=== PATIENT | male | born 1950 | race Caucasian/White ===

== ENCOUNTER 2023-01-03 16:50 | Emergency (ER) | payer MEDICARE ==
[~2023-01-03] VITALS: Ht 177.8 cm; Wt 85.3 kg
[~2023-01-03 16:50] MED LIST: CEPH500 PO; HYDACE5325 PO
[2023-01-03 17:06] VITALS: BP 145/104
== END 2023-01-03 20:00 | disposition home or self-care (01) ==
LOC: ER 16:50
DX: S52.501A Unspecified fracture of the lower end of right radius, initial encounter for closed fracture (principal); W18.30XA Fall on same level, unspecified, initial encounter; Z79.891 Long term (current) use of opiate analgesic; I10 Essential (primary) hypertension; E11.9 Type 2 diabetes mellitus without complications; D64.9 Anemia, unspecified; E03.9 Hypothyroidism, unspecified
CPT/HCPCS: 29125; 73090; 73110; 99283-25

== ENCOUNTER 2023-02-07 21:58 | Emergency (ER) | payer MEDICARE ==
[~2023-02-07] VITALS: Ht 177.8 cm; Wt 86.2 kg
[2023-02-07 23:15] LABS: BASOPHILS ABSOLUTE AUTO 0.03 K/mm3 (0.00-0.23); BASOPHILS PERCENT AUTO 0 % (0-2); EOSINOPHILS ABSOLUTE AUTO 0.15 K/mm3 (0.00-0.68); EOSINOPHILS PERCENT AUTO 2 % (0-6); Hematocrit 30.1 % (37.0-53.0); Hemoglobin 9.8 g/dL (13.5-17.5); IMMATURE GRAN ABSOLUTE AUTO 0.01 K/mm3 (0.00-0.10); IMMATURE GRAN PERCENT AUTO 0 % (0-1); LYMPHOCYTES ABSOLUTE AUTO 1.38 K/mm3 (0.84-5.20); LYMPHOCYTES PERCENT AUTO 19 % (21-46); MONOCYTES ABSOLUTE AUTO 0.37 K/mm3 (0.16-1.47); MONOCYTES PERCENT AUTO 5 % (4-13); Mean Corpuscular HGB 32.1 pg (26.0-34.0); Mean Corpuscular HGB Conc 32.6 g/dL (31.5-36.5); Mean Corpuscular Volume 99 fL (80-100); Mean Platelet Volume 9.4 fL (9.1-12.4); NEUTROPHILS ABSOLUTE AUTO 5.21 K/mm3 (1.96-9.15); NEUTROPHILS PERCENT AUTO 73 % (41-73); Platelet Count 209 K/mm3 (150-400); RDW Coefficient Variation 11.9 % (11.7-14.2); RDW Standard Deviation 42.7 fL (35.1-46.3); Red Blood Cell Count 3.05 M/mm3 (4.30-5.90); White Blood Cell Count 7.15 K/mm3 (4.00-11.30)
[2023-02-07 23:21] LABS: Base Excess Venous -5.4 mmol/L; Bicarbonate Venous 20.1 mmol/L (24.0-30.0); PCO2 Venous 47.5 mmHg (38-42); pH Blood Venous 7.27 (7.34-7.37)
[2023-02-07] MEDS ORDERED: LEVOTHYROXINE (23:28)
[2023-02-07] MEDS ORDERED: GLIM2 (23:29)
[2023-02-07] MEDS ORDERED: LOSA25 (23:29)
[2023-02-07] MEDS ORDERED: METO25ER (23:29)
[2023-02-07] MEDS ORDERED: Vitamin B-12100 MCG (23:30)
[2023-02-07] MEDS ORDERED: TRAZ100 (23:31)
[2023-02-07] MEDS ORDERED: BUME2 (23:31)
[2023-02-07 23:34] LABS: Albumin, Blood 3.4 g/dL (3.4-5.0); Beta-hydroxybutyrate 2.2 mg/dL (0.2-2.8); Bilirubin, Total 0.4 mg/dL (0.1-1.0); Bun/Creatinine Ratio 16.3 (12.0-20.0); Calcium, Blood 8.7 mg/dL (8.5-10.1); Creatinine, Blood 4.17 mg/dL (0.60-1.20); Globulin, Blood 3.3 g/dL (2.2-4.0); Potassium, Blood 5.2 mmol/L (3.5-5.5); Total Protein, Blood 6.7 g/dL (6.4-8.2)
[2023-02-08] VITALS: BP 144/77
== END 2023-02-08 00:07 | disposition home or self-care (01) ==
LOC: ER 21:58
PROVIDERS: Student in an Organized Health Care Education/Training Program
DX: E11.65 Type 2 diabetes mellitus with hyperglycemia (principal); E87.20 Acidosis, unspecified; E11.22 Type 2 diabetes mellitus with diabetic chronic kidney disease; I12.0 Hypertensive chronic kidney disease with stage 5 chronic kidney disease or end stage renal disease; N18.6 End stage renal disease; E27.1 Primary adrenocortical insufficiency; E03.9 Hypothyroidism, unspecified; Z99.2 Dependence on renal dialysis; Z79.899 Other long term (current) drug therapy; Z79.84 Long term (current) use of oral hypoglycemic drugs
CPT/HCPCS: 80053; 82010; 82803; 82947; 85025; 99283

== ENCOUNTER 2023-03-02 20:16 | Emergency (ER) | payer MEDICARE ==
[~2023-03-02] VITALS: Ht 177.8 cm; Wt 86.2 kg
[~2023-03-02 20:16] MED LIST changes: +BUME2; +GLIM2; +LEVOTHYROXINE; +LOSA25; +METO25ER; +TRAZ100; +Vitamin B-12100 MCG
[2023-03-02 20:54] VITALS: BP 150/84
[2023-03-02 21:50] LABS: Albumin, Blood 3.6 g/dL (3.4-5.0); Bilirubin, Total 0.3 mg/dL (0.1-1.0); Bun/Creatinine Ratio 18.3 (12.0-20.0); Creatinine, Blood 4.05 mg/dL (0.60-1.20); Globulin, Blood 3.6 g/dL (2.2-4.0); Potassium, Blood 5.5 mmol/L (3.5-5.5); Total Protein, Blood 7.2 g/dL (6.4-8.2)
[2023-03-02 21:53] LABS: Source, Urine Clean Catch
[2023-03-02 21:55] LABS: Bilirubin, Urine Neg (Neg); Blood, Urine 2+ (Neg); Glucose Qualitative, Urine 3+ (Neg); Ketones, Urine Neg (Neg); Leukocyte Esterase, Urine Neg (Neg); Nitrite, Urine Neg (Neg); Protein, Urine 3+ (Neg); Urobilinogen, Urine NORM (Normal)
[2023-03-02 22:00] LABS: Appearance, Urine Clear (Clear); Color, Urine Yellow (P-Yellow)
[2023-03-02 22:03] LABS: Bacteria Not Seen /hpf; Red Blood Cells, Urine 0-2 /hpf (0-2); Squamous Epithelial Cells Rare /hpf (Few); White Blood Cells, Urine Not Seen /hpf (0-5)
== END 2023-03-03 02:17 | disposition home or self-care (01) ==
LOC: ER 20:16
PROVIDERS: Emergency Medicine
DX: E11.65 Type 2 diabetes mellitus with hyperglycemia (principal); Z79.4 Long term (current) use of insulin; Z79.890 Hormone replacement therapy; Z79.84 Long term (current) use of oral hypoglycemic drugs; Z79.899 Other long term (current) drug therapy
CPT/HCPCS: 80053; 81001; 82947; 99283

== ENCOUNTER 2023-03-08 17:52 | Emergency (ER) | payer MEDICARE ==
[~2023-03-08] VITALS: Ht 177.8 cm; Wt 85.3 kg
[2023-03-08 19:40] VITALS: BP 132/67
== END 2023-03-08 19:43 | disposition home or self-care (01) ==
LOC: ER 17:52
DX: E11.65 Type 2 diabetes mellitus with hyperglycemia (principal); I12.0 Hypertensive chronic kidney disease with stage 5 chronic kidney disease or end stage renal disease; E11.22 Type 2 diabetes mellitus with diabetic chronic kidney disease; N18.6 End stage renal disease; E03.9 Hypothyroidism, unspecified; Z79.890 Hormone replacement therapy; Z79.899 Other long term (current) drug therapy
CPT/HCPCS: 99283

== ENCOUNTER → 2023-03-22 | Outpatient (CLI) | payer MEDICARE | END | disposition home or self-care (01) | LOC: LAB SHORT 17:33 → LAB EV 17:33 | DX: E11.65 Type 2 diabetes mellitus with hyperglycemia (principal); R05.9 Cough, unspecified; R35.0 Frequency of micturition | CPT/HCPCS: 87086 ==

== ENCOUNTER 2023-04-26 18:02 | Inpatient (IN) | payer MEDICARE ==
[~2023-04-26] VITALS: Ht 177.8 cm; Wt 86.6 kg
[~2023-04-26 18:02] MED LIST changes: -GLIM2; +GLIM2 PO; -LEVOTHYROXINE; +LEVSOD150 PO; -LOSA25; +LOSA25 PO; -TRAZ100; +TRAZ100 PO
[2023-04-26] MEDS ORDERED: GABA300 PO (20:28)
[2023-04-26] MEDS ORDERED: HYDCOR20 PO (20:28)
[2023-04-26] MEDS ORDERED: Cyclobenzaprine5 MG PO (20:29)
[2023-04-26] MEDS ORDERED: Norco 10-325 T1 EACH PO (20:30)
[2023-04-26 21:40] LABS: Albumin, Blood 3.1 g/dL (3.4-5.0); Anion Gap 8 mmol/L (6-16); Blood Urea Nitrogen 118 mg/dL (8-24); Bun/Creatinine Ratio 25.8 (12.0-20.0); CO2, Blood 24 mmol/L (21-32); Calcium, Blood 8.7 mg/dL (8.5-10.1); Chloride, Blood 101 mmol/L (98-108); Creatinine, Blood 4.57 mg/dL (0.60-1.20); Glomerular Filtration Rate 13 (60-); Glucose, Blood 344 mg/dL (70-99); Phosphorus, Blood 3.6 mg/dL (2.5-4.9); Potassium, Blood 6.2 mmol/L (3.5-5.5); Sodium, Blood 133 mmol/L (136-145)
[2023-04-26 22:52] VITALS: BP 91/51
[2023-04-27 01:39] LABS: Albumin, Blood 2.9 g/dL (3.4-5.0); Anion Gap 6 mmol/L (6-16); Blood Urea Nitrogen 114 mg/dL (8-24); Bun/Creatinine Ratio 23.2 (12.0-20.0); CO2, Blood 28 mmol/L (21-32); Calcium, Blood 8.5 mg/dL (8.5-10.1); Chloride, Blood 103 mmol/L (98-108); Creatinine, Blood 4.91 mg/dL (0.60-1.20); Glomerular Filtration Rate 12 (60-); Glucose, Blood 296 mg/dL (70-99); Phosphorus, Blood 2.9 mg/dL (2.5-4.9); Potassium, Blood 5.5 mmol/L (3.5-5.5); Sodium, Blood 137 mmol/L (136-145)
[2023-04-27 03:06] VITALS: BP 144/59
[2023-04-27 04:09] LABS: BASOPHILS ABSOLUTE AUTO 0.04 K/mm3 (0.00-0.23); BASOPHILS PERCENT AUTO 0 % (0-2); EOSINOPHILS ABSOLUTE AUTO 0.01 K/mm3 (0.00-0.68); EOSINOPHILS PERCENT AUTO 0 % (0-6); Hematocrit 23.3 % (37.0-53.0); Hemoglobin 7.8 g/dL (13.5-17.5); IMMATURE GRAN ABSOLUTE AUTO 0.07 K/mm3 (0.00-0.10); IMMATURE GRAN PERCENT AUTO 0 % (0-1); LYMPHOCYTES ABSOLUTE AUTO 0.43 K/mm3 (0.84-5.20); LYMPHOCYTES PERCENT AUTO 3 % (21-46); MONOCYTES ABSOLUTE AUTO 0.42 K/mm3 (0.16-1.47); MONOCYTES PERCENT AUTO 3 % (4-13); Mean Corpuscular HGB 32.2 pg (26.0-34.0); Mean Corpuscular HGB Conc 33.5 g/dL (31.5-36.5); Mean Corpuscular Volume 96 fL (80-100); Mean Platelet Volume 9.4 fL (9.1-12.4); NEUTROPHILS ABSOLUTE AUTO 14.66 K/mm3 (1.96-9.15); NEUTROPHILS PERCENT AUTO 94 % (41-73); Platelet Count 204 K/mm3 (150-400); RDW Coefficient Variation 11.5 % (11.7-14.2); RDW Standard Deviation 40.5 fL (35.1-46.3); Red Blood Cell Count 2.42 M/mm3 (4.30-5.90); White Blood Cell Count 15.63 K/mm3 (4.00-11.30)
[2023-04-27 04:28] LABS: International Normalized Ratio 1.15
[2023-04-27 04:42] LABS: Albumin, Blood 2.9 g/dL (3.4-5.0); Albumin/Globulin Ratio 0.9 (0.8-1.8); Bilirubin, Total 0.4 mg/dL (0.1-1.0); Bun/Creatinine Ratio 22.2 (12.0-20.0); Calcium, Blood 8.6 mg/dL (8.5-10.1); Creatinine, Blood 5.18 mg/dL (0.60-1.20); Globulin, Blood 3.2 g/dL (2.2-4.0); Magnesium, Blood 2.1 mg/dL (1.6-2.4); Potassium, Blood 5.8 mmol/L (3.5-5.5); Thyroid Stimulating Hormone 2.36 uIU/mL (0.360-4.800); Total Protein, Blood 6.1 g/dL (6.4-8.2)
--- NOTE | 2023-04-27 06:25 | NUR ---
SHIFT SUMMARY PT IS HERE WITH A LEFT FEMUR FX AFTER FALLING INTO AN OPEN CRAWLSPACE HOLE LOCATED INSIDE THE HOME. PT IS A AMISH AND DOES NOT WANT ANY BLOOD PRODUCTS. PT HAS ESRD AND IS ON PERITONEAL DIALYSIS, PORT LOCATED ON THE PT'S ABDOMEN. HIS LAST DIALYSIS APPT WAS ON 04/22/23. PT'S POTASSIUM, BUN, AND CREATININE ARE ELEVATED. PT HAS BEEN NPO SINCE MIDNIGHT FOR ADD-ON PROCEDURE TODAY. PT HAS ALSO BEEN PLACED IN TRACTION PER MD ORDER. 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 PT IS ALSO ON TELEMETRY AND HAD AN ST DEPRESSION THIS SHIFT WELL BUNDLE FLIPS OCCURRING AROUND MIDNIGHT PER MESH CUTTER. EKG PERFORMED WITH PCU PAUL ANN AND ALL HEART MONITORING RESULTS REPORTED TO MD IGLESIAS. METOPROLOL HELD LAST NIGHT D/T SYSTOLIC BEING UNDER 100. PT HAS BEEN STRUGGLING TO KEEP HIS BLOOD GLUCOSE DOWN AND HAS AN APPT WITH AN [facility] ON SUNDAY. PT'S BROTHER GARCIA WILL CALL TODAY TO SEE ABOUT BEING ABLE TO MAKE THAT APPT. BED IS IN LOWEST POSITION, CALL LIGHT IS WITHIN REACH.
--- NOTE | 2023-04-27 07:19 | NUR ---
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 DR HAJI NOTIFIED, OK TO SWITCH CONSULT PER PT REQUEST.
[2023-04-27 07:37] VITALS: BP 128/66
[2023-04-27 08:17] LABS: Percent Saturation 7.1 % (20.0-50.0)
[2023-04-27 10:57] VITALS: BP 147/65
--- NOTE | 2023-04-27 10:58 | NUR ---
PT TO DAY SURGERY WITH 20G 8CM POWERGLIDE
[2023-04-27 14:44] VITALS: BP 137/79
--- NOTE | 2023-04-27 17:44 | NUR ---
PD RN TO PT ROOM AT APPROX 1730PM TO START UP SERVIN CYCLER AND BEGIN SETTING UP FOR CCPD TREATMENT. CYCLER PROGRAMMED FOR A TREATMENT OF 1.5% DEXTROSE, TOTAL OF 4000ML, TOTAL THERAPY TIME OF 8 HRS, 2 EXCHANGES OF 2000ML EACH, WITH NO LAST FILL. AVERAGE DWELL TIME IS 3:34. CHANGED PT EXIT SITE BANDAGE, EXIT SITE IN PERFECT CONDITION, NEW BANDAGE APPLIED, CLEAN DRY AND INTACT, TX STARTED PER PROTOCOL, PT CONNECTED AT 1750PM.
--- NOTE | 2023-04-27 18:26 | NUR ---
SHIFT SUMMARY S/P L HIP FX, A/OX4, VSS, TOLERATIN PO, PAIN MANAGED PER EMAR. SURGERY DELAYED TODAY R/T NEED FOR DIALYSIS, PLAN TO TAKE HIM TO SURGERY TOMORROW [place], DIALYSIS STARTED BY [facility] JUST AFTER 1700, CONTACT INFORMATION GIVEN SHOULD PATIENT OR STAFF HAVE QUESTIONS. PT REMAINS IN BUCKS TRACTION T/O THE SHIFT. NO ACUTE EVENTS THIS SHIFT, CALL LIGHT IN REACH.
[2023-04-27 20:26] VITALS: BP 139/103
[2023-04-28] VITALS (22 sets, daily range): BP systolic 106–158; BP diastolic 51–79
--- NOTE | 2023-04-28 00:29 | NUR ---
CALLED BY BEDSIDE RN AT APPROX 2330PM DUE TO PD CYCLER ALARMS. "LOW DRAIN VOLUME" READ ON DISPLAY. ATEMPTED TO CLEAR ALARMS VIA PHONE BY HAVING BEDSIDE RN CHECK FOR KINKS AND PATIENT/CATHETER POSITIONING. TRIED TO PRESS STOP AND GO AGAIN TO REINITIATE DRAIN 1 OF 2. WAS CALLED BACK WHEN IT AGAIN BEGAN TO ALARM SHORTLY AFTER. I CAME IN A AGIAN ATTEMPTED THIS SYMPLE TROUBLE SHOOTING IN HOPES OF COMPLETING THE FIRST DRAIN COMPLETELY. THIS DID NOT WORK. I RECORDED ALL INFORMATION ON THE DISPLAY SCREEN FROM THE FIRST FILL/DWELL/DRAIN AND THEN BYPASSED THE REMAINDER OF THIS 1ST EXCAHNGE. IT WENT INTO ITS 2ND FILL OF 2. I NOTIFIED BEDSIDE RN TO CALL ME BACK IF ALARMS PERSIST. IT IS LIKELY THIS LOW DRAIN VOLUME WILL OCCUR AGAIN ONCE THIS 2ND DWELL IS COMPLETED AND IT ATTEMPTS TO DRAIN AGAIN. DRAIN VOLUME: 1409ML, IDRAIN: 1ML, MIN DRAIN VOL: 1699ML, CURRENT UF: -574.
[2023-04-28 04:39] LABS: BASOPHILS ABSOLUTE AUTO 0.03 K/mm3 (0.00-0.23); BASOPHILS PERCENT AUTO 0 % (0-2); EOSINOPHILS ABSOLUTE AUTO 0.09 K/mm3 (0.00-0.68); EOSINOPHILS PERCENT AUTO 1 % (0-6); Hematocrit 21.4 % (37.0-53.0); Hemoglobin 7.1 g/dL (13.5-17.5); IMMATURE GRAN ABSOLUTE AUTO 0.02 K/mm3 (0.00-0.10); IMMATURE GRAN PERCENT AUTO 0 % (0-1); LYMPHOCYTES ABSOLUTE AUTO 0.94 K/mm3 (0.84-5.20); LYMPHOCYTES PERCENT AUTO 9 % (21-46); MONOCYTES ABSOLUTE AUTO 0.47 K/mm3 (0.16-1.47); MONOCYTES PERCENT AUTO 5 % (4-13); Mean Corpuscular HGB Conc 33.2 g/dL (31.5-36.5); Mean Corpuscular Volume 96 fL (80-100); Mean Platelet Volume 9.5 fL (9.1-12.4); NEUTROPHILS PERCENT AUTO 85 % (41-73); Platelet Count 168 K/mm3 (150-400); RDW Coefficient Variation 11.5 % (11.7-14.2); RDW Standard Deviation 40.6 fL (35.1-46.3); Red Blood Cell Count 2.22 M/mm3 (4.30-5.90); White Blood Cell Count 9.95 K/mm3 (4.00-11.30)
[2023-04-28 05:06] LABS: Magnesium, Blood 2.3 mg/dL (1.6-2.4)
[2023-04-28 05:10] LABS: Albumin, Blood 2.8 g/dL (3.4-5.0); Albumin/Globulin Ratio 0.9 (0.8-1.8); Bilirubin, Total 0.4 mg/dL (0.1-1.0); Calcium, Blood 8.6 mg/dL (8.5-10.1); Creatinine, Blood 5.49 mg/dL (0.60-1.20); Globulin, Blood 3.1 g/dL (2.2-4.0); Potassium, Blood 4.7 mmol/L (3.5-5.5); Total Protein, Blood 5.9 g/dL (6.4-8.2)
--- NOTE | 2023-04-28 06:40 | NUR ---
SHIFT SUMMARY PT IS HERE AWAITING SURGICAL INTERVENTION OF A LEFT FEMUR FX, WITH THE LEG BEING INTERNALLY ROTATED. PT HAS BEEN NPO SINCE MIDNIGHT. PT IS ALSO IN BUCKS TRACTION AT THIS TIME. PT WAS ON PERITONEAL DIALYSIS THIS SHIFT, BUT LAB RESULTS CAME BACK AND THE PT'S BUN AND CREATININE ARE SLIGHTLY WORSE THAN THE DAY BEFORE. PT'S HGB IS ALSO DOWN TO 7.1 PER AM LABS. PT'S HR HAS BEEN BETTER THIS SHIFT, RUNNING SINUS RHYTHM WITH A RATE IN THE 80'S. PT'S PAIN MEDICATED PER EMAR. BED IS IN LOWEST POSITION, CALL LIGHT IS WITHIN REACH.
--- NOTE | 2023-04-28 09:10 | NUR ---
0715 TO [facility] 212 FOR PD DISCONTINUANCE. PT IS LYING IN BED IN NO APPARENT DISTRESS. S/O AT BEDSIDE. NPO FOR ORTHO SURGERY. PT HAS IRON INFUSION RUNNING. PD DC/D PER PROTOCOL UNDER ASEPTIC TECHNIQUE. UNABLE TO ACCESS INTERVENTIONS ON [employer]. DRAIN VOLUME 1669ML; I DRAIN 1ML; AV DWELL 2.26 UF -823. PT IS REQUESTED TO RUN HIS OWN MANUAL PD ? WILL CONSULT WITH DR HERNANDEZ THIS AFTERNOON FOR FURTHER ORDERS. PT CATH SITE IS CLEAN, DRY AND INTACT. NO REDNESS OR DRNG NOTED. LEFT IN STABLE CONDITION. SACHIN
--- NOTE | 2023-04-28 09:35 | NUR ---
PT TAKEN TO OR AT APPROXIMATELY 0935.
--- NOTE | 2023-04-28 15:12 | NUR ---
PT ARRIVED FROM PACU TO THE ROOM AT 1405. PT COMPLAINS OF PAIN WITH MOVEMENT. HE IS SOMEWHAT CONFUSED ABOUT PLACE AND SITUATION. FAMILY PRESENT AT BEDSIDE. PT EDUCATED THAT HE WILL NEED TO WAIT FOR ADDITIONAL PAIN MEDICATION GIVEN HIS SENSITIVITY TO PAIN MEDICATION GIVEN IN PACU, PT AND FAMILY REPORTED UNDERSTANDING.
--- NOTE | 2023-04-28 17:22 | NUR ---
DR. HAJI NOTIFIED THAT PATIENT IS HAVING PERIODS OF APNEA WHEN SLEEPING. WHILE ON O2 PT'S OXYGEN SATURATIONS HAS BEEN NOTED TO DROP TO THE 70'S, PT RECOVERS IMMEDIATELY WHEN WOKEN BY STAFF. AVOIDING NARCOTIC PAIN MEDICATION AT THIS TIME.
--- NOTE | 2023-04-28 17:45 | NUR ---
SHIFT SUMMARY PT IS POD#0 FROM L HIP NAILING WITH DR. ROONEY. PT HAS BEEN PAINFUL POST OP; PAIN MANAGED WITH TYLENOL AND GABAPENTIN. PT IS SENSITIVE TO NARCOTICS. PT IS TOLERATING PO. FAMILY HAS BEEN AT THE BEDSIDE FOR SUPPORT. PT WAS CONFUSED POST-OP, HE IS NOW A&O X3-4; BED ALARM IN PLACE FOR SAFETY. CALL LIGHT WITHIN REACH.
--- NOTE | 2023-04-28 18:39 | NUR ---
1730 -TO ROOM 212 FOR [place] PD TX, SERVICES OF DR HERNANDEZ. PT IS 72 YO MALE WITH R FEMUR FX POST OP ORIF. PT IS AWAKE, ALERT AND ORIENTED. PLEASANT AND COOPERATIVE. FAMILY AT BEDSIDE. PD INITIATED UNDER ASEPTIC TECHNIQUE. PT TOLERATED WELL. ALL QUESTION ANSWERED. LEFT IN STABLE CONDITION. CATH SITE IS [facility]. SACHIN
[2023-04-29 02:50] VITALS: BP 141/65
[2023-04-29 05:18] LABS: Hemoglobin 6.4 g/dL (13.5-17.5)
[2023-04-29 05:41] LABS: Albumin, Blood 2.6 g/dL (3.4-5.0); Anion Gap 9 mmol/L (6-16); Blood Urea Nitrogen 119 mg/dL (8-24); Bun/Creatinine Ratio 22.6 (12.0-20.0); CO2, Blood 27 mmol/L (21-32); Calcium, Blood 8.4 mg/dL (8.5-10.1); Chloride, Blood 101 mmol/L (98-108); Creatinine, Blood 5.27 mg/dL (0.60-1.20); Glomerular Filtration Rate 11 (60-); Glucose, Blood 318 mg/dL (70-99); Magnesium, Blood 2.3 mg/dL (1.6-2.4); Phosphorus, Blood 6.8 mg/dL (2.5-4.9); Potassium, Blood 4.8 mmol/L (3.5-5.5); Sodium, Blood 137 mmol/L (136-145)
[2023-04-29 07:14] VITALS: BP 151/61
--- NOTE | 2023-04-29 09:14 | NUR ---
TO ROOM 212 FOR PD D/C ORDERS OF DR ALEX HERNANDEZ. PT EATING BREAKFAST, ALERT AND ORIENTED. PAIN LEVEL OF 4 TO R SURGICAL SITE. PRIMARY RN AT BEDSIDE. TX DISCONTINUED ASEPTICALLY. PT TOLERATED WELL. CATHETER SITE IS WNL. AV DWELL TIME 1:51, CURRENT UF -40ML, I DRAIN 185ML, DWELL VOLUME 2347. PT LEFT IN STABLE CONDITION. PLAN FOR PM TX TONIGHT. PLAN FOR PT DC TOMORROW 04/30/2023. SACHIN
--- NOTE | 2023-04-29 09:57 | NUR ---
SUMMARY PT NEEDS STRONG ENC TO REPOSITION.TOLERATED DILAUDID FOR PAIN.DIALYSIS RAN DURING NIGHT.
--- NOTE | 2023-04-29 11:28 | NUR ---
DR. HAJI ROUNDED. DISCUSSED PAIN MANAGEMENT WITH DR. HAJI, PT VERY PAINFUL WHEN WORKING WITH THERAPY. PT ALSO REPORTED DIZZINESS WHEN OOB, H&H LOW, VSS. PER DR. HAJI CONTINUE WITH PAIN MEDICATION ORDERED.
[2023-04-29 15:05] VITALS: BP 133/62
--- NOTE | 2023-04-29 19:37 | NUR ---
to room 212 for evening pd tx. pt dozing. awakens appropriately. vss. oriented. pd initiated per Dr Rosales orders. pt tolerated well. report to night JOS. vicente
--- NOTE | 2023-04-29 19:57 | NUR ---
SHIFT SUMMARY PT IS POD#1 FROM L HIP REPAIR WITH DR. ROONEY. PT REPORTS PAIN IS WELL MANAGED WITH PO PAIN MEDICATION. PT DOES GRIMACE AND HAVE DIFFICULTY REPOSITIONING/GETTING OOB. DISCUSSED PAIN MANAGEMENT WITH DR. HAJI, NO CHANGES AT THIS TIME SINCE PT REPORTS PAIN IS TOLERABLE. PT WORKED WITH PT X1 TODAY. HE BECAME DIZZY WHEN STANDING AND WAS ASSISTED BACK TO BED. PT HAS HAD ADEQUATE INTAKE AND OUTPUT. FAMILY HAS BEEN AT THE BEDSIDE FOR SUPPORT. REPORT GIVEN TO JORGE ARGUELLO.
[2023-04-29 20:26] VITALS: BP 131/55
[2023-04-30 04:53] VITALS: BP 127/58
[2023-04-30 06:22] LABS: Hemoglobin 6.2 g/dL (13.5-17.5)
[2023-04-30 06:44] LABS: Albumin, Blood 2.4 g/dL (3.4-5.0); Anion Gap 7 mmol/L (6-16); Blood Urea Nitrogen 114 mg/dL (8-24); CO2, Blood 29 mmol/L (21-32); Calcium, Blood 8.3 mg/dL (8.5-10.1); Chloride, Blood 102 mmol/L (98-108); Creatinine, Blood 5.19 mg/dL (0.60-1.20); Glomerular Filtration Rate 11 (60-); Glucose, Blood 257 mg/dL (70-99); Magnesium, Blood 2.2 mg/dL (1.6-2.4); Phosphorus, Blood 5.3 mg/dL (2.5-4.9); Potassium, Blood 4.4 mmol/L (3.5-5.5); Sodium, Blood 138 mmol/L (136-145)
[2023-04-30 07:25] VITALS: BP 125/59
--- NOTE | 2023-04-30 08:00 | NUR ---
DIALYSIS NOTE CCPD TX COMPLETED PRESCRIBED. PT TOLEARATED TX WELL AND DENIES ANY ALARMS DURING NIGHT. INITIAL DRAIN 196, TUF (-192), AVG DWELL TIME 1:07. PT DISCONNECTED FROM MACHINE USING ASEPTIC TECHNIQUE, TRANSFER SET CLAMPED, CLOSED, CAPPED AND SECURE PER P&P. REPORT GIVEN TO ANABEL ACUNA RN
--- NOTE | 2023-04-30 08:01 | NUR ---
POD 2 S/P L HIP NAILING. PT VSS T/O NIGHT. 2LO2 NC IN [address] WHEN SLEEPING R/T APPEARS TO HAVE APNEIC EPISODES WHEN SLEEPING. DRESSINGS CDI. LEFT HIP REMAINS SWOLLEN, L KNEE DOES APPEAR MORE SWOLLEN THIS AM. PAIN MGD PER EMAR W/REP RELIEF. CAP REFILL WNL, PT DENIES CHANGES IN SENSATION. PERITONEAL DYALISIS CONT T/O NIGHT, PT TEODORO WELL. PT VOIDED SMALL AMT URINE. PT REPOSITIONED IN BED W/MOD ASSIST. PT REP HE IS MOVING HIS LEG A LITTLE BETTER THIS AM. PLAN TO MOBILIZE W/PT. BEDSIDE REP GIVEN TO JOS LITTLE.
[2023-04-30 14:40] VITALS: BP 119/96
--- NOTE | 2023-04-30 16:35 | NUR ---
SHIFT SUMMARY POD 2 NAILING. PT UP IN CHAIR FOR MOST OF SHIFT. PAIN WELL CONTROLLED PER EMAR. 1 ASSIST WITH FWW FOR TRANSFERS. DRESSING REMAINS CDI. TOLERATING DIET WELL. PLAN WILL BE TO CONTINUE WITH AMBULATION.
--- NOTE | 2023-04-30 17:59 | NUR ---
DIALYSIS NOTE CCPD TX INITIATED PER MD ORDER, DRSG CHANGE COMPLETED AND PT TOLERATED WELL. HANDOFF REPORT GIVEN TO ANABEL ACUNA RN
[2023-04-30 19:56] VITALS: BP 132/54
[2023-05-01 06:02] VITALS: BP 115/54
[2023-05-01 06:34] LABS: Hematocrit 18.6 % (37.0-53.0); Hemoglobin 6.3 g/dL (13.5-17.5)
[2023-05-01 07:14] LABS: Albumin, Blood 2.4 g/dL (3.4-5.0); Anion Gap 7 mmol/L (6-16); Blood Urea Nitrogen 110 mg/dL (8-24); Bun/Creatinine Ratio 21.8 (12.0-20.0); CO2, Blood 28 mmol/L (21-32); Calcium, Blood 8.3 mg/dL (8.5-10.1); Chloride, Blood 101 mmol/L (98-108); Creatinine, Blood 5.04 mg/dL (0.60-1.20); Glomerular Filtration Rate 11 (60-); Glucose, Blood 288 mg/dL (70-99); Magnesium, Blood 2.3 mg/dL (1.6-2.4); Phosphorus, Blood 4.4 mg/dL (2.5-4.9); Potassium, Blood 4.1 mmol/L (3.5-5.5); Sodium, Blood 136 mmol/L (136-145)
[2023-05-01 07:25] VITALS: BP 133/98
[2023-05-01 07:26] VITALS: BP 124/64
--- NOTE | 2023-05-01 07:38 | NUR ---
POD 3 S/P L HIP REPAIR. PT VSS T/O NIGHT. PT USED CPAP W/2LO2 BLEED IN WHILE SLEEPING. NO CHANGES TO LEFT HIP SWELLING, L KNEE SOMEWHAT MORE SWOLLEN, PT REP LESS PAINFUL THIS AM, IS MOVING FOOT MORE THIS AM. PAIN MGD PER EMAR W/REP RELIEF. PD CONT T/O NIGHT, PT TEODORO WELL. PLAN TO MOBILIZE W/PT AND AWAIT DC PLANNING.
--- NOTE | 2023-05-01 10:04 | NUR ---
DIALYSIS NOTE CCPD TX COMPLETED PRESCRIBED. PT TOLEARATED TX WELL AND DENIES ANY ALARMS DURING NIGHT. INITIAL DRAIN 641, TUF (-177), AVG DWELL TIME 3:26. PT DISCONNECTED FROM MACHINE USING ASEPTIC TECHNIQUE, TRANSFER SET CLAMPED, CLOSED, CAPPED AND SECURE PER P&P. REPORT GIVEN TO ANABEL ACUNA RN
[2023-05-01 14:39] VITALS: BP 141/61
--- NOTE | 2023-05-01 17:05 | NUR ---
SHIFT SUMMARY POD 2 R BESS HIP PAIN IMPROVING DURING DAY, WORSE IN THE MORNING WHEN HE HAS NOT BEEN MOVING MUCH. AMBULATING WELL IN HALLS WITH THERAPY. AMBULATING TO THE BATHROOM REGULARILY. PAIN CONTROLLED PER EMAR. DRESSING REMAINS CDI. PLAN IS FOR DIALYSIS TONIGHT AND CONTINUING TO WORK WITH THERAPY.
--- NOTE | 2023-05-01 17:57 | NUR ---
DIALYSIS NOTE CCPD TX INITIATED PER MD ORDER, DRSG CHANGE COMPLETED AND PT TOLERATED WELL. HANDOFF REPORT GIVEN TO ANABEL ACUNA RN
[2023-05-01 19:20] VITALS: BP 140/84
--- NOTE | 2023-05-01 21:09 | NUR ---
CBG: CBG 360. PER SS ORDERS CALL MD FOR >350. CALL PLACED TO HOSPITALIST BOY ZIMMER TREND AND INSULIN ORDERS REV; NO NEW ORDERS AT THIS TIME.
[2023-05-02 05:28] LABS: Hematocrit 18.6 % (37.0-53.0); Hemoglobin 6.1 g/dL (13.5-17.5)
[2023-05-02 05:48] VITALS: BP 121/57
[2023-05-02 06:09] LABS: Albumin, Blood 2.4 g/dL (3.4-5.0); Anion Gap 8 mmol/L (6-16); Blood Urea Nitrogen 102 mg/dL (8-24); Bun/Creatinine Ratio 21.6 (12.0-20.0); CO2, Blood 28 mmol/L (21-32); Calcium, Blood 8.3 mg/dL (8.5-10.1); Chloride, Blood 101 mmol/L (98-108); Creatinine, Blood 4.73 mg/dL (0.60-1.20); Glomerular Filtration Rate 12 (60-); Glucose, Blood 272 mg/dL (70-99); Magnesium, Blood 2.2 mg/dL (1.6-2.4); Phosphorus, Blood 3.8 mg/dL (2.5-4.9); Potassium, Blood 3.8 mmol/L (3.5-5.5); Sodium, Blood 137 mmol/L (136-145)
[2023-05-02 07:02] VITALS: BP 179/72
--- NOTE | 2023-05-02 07:44 | NUR ---
POD 4 S/P L HIP REPAIR. PT VSS T/O NIGHT. CPAP W/2LO2 BLEED IN IN PALCE WHEN SLEEPING, PT TEODORO WELL. DRESSINGS CDI. SWELLING TO LEFT HIP AND KNEE IMPROVED AND SOFTER TO PALP. PULSES AND CAP REFILL WNL, PT DENIED CHANGES IN SENSATION. PAIN MGD PER EMAR W/REP RELIEF. PT REPOSITIONING SELF IN BED BETTER W/LESS ASSISTANCE. PD CONT T/O NIGHT, PT TEODORO WELL. CBG ELEVATED, DAY SHIFT RN UPDATED W/PLAN TO DISCUSS W/MD TODAY. PLAN TO MOBILIZE W/PT AND AWAIT DC PLANNING.
--- NOTE | 2023-05-02 07:45 | NUR ---
DIALYSIS NOTE CCPD TX COMPLETED PRESCRIBED. PT TOLEARATED TX WELL AND DENIES ANY ALARMS DURING NIGHT. INITIAL DRAIN 973, TUF 56, AVG DWELL TIME 3:54. PT DISCONNECTED FROM MACHINE USING ASEPTIC TECHNIQUE, TRANSFER SET CLAMPED, CLOSED, CAPPED AND SECURE PER P&P. REPORT GIVEN TO PRIMARY RN
--- NOTE | 2023-05-02 07:49 | NUR ---
FISTULA: PT REP HE HAS A FISTULA IN LEFT ARM. PT ASKED ABOUT POSSIBILITY OF STARTING HD FOR POSSIBLE DC TO SNF INSTEAD OF HH.
[2023-05-02] MEDS ORDERED: [UNRECOGNIZED DRUG - OTHER] SC (13:15)
[2023-05-02] MEDS ORDERED: HYDMOR2 PO (13:17)
[2023-05-02 13:48] VITALS: BP 111/67
--- NOTE | 2023-05-02 14:12 | NUR ---
DRESSINGS REMOVED. INCISION SITES CLEANSED WITH H2O2. AQUACEL DRESSING PLACED.
--- NOTE | 2023-05-02 16:39 | NUR ---
DISCHARGE PT PROVIDED WITH WRITTEN AND VERBAL DISCHARGE INSTRUCTIONS; HE AND HIS FAMILY REPORTED UNDERSTANDING. PT EDUCATED TO FOLLOW-UP WITH PCP WITHIN 1 WEEK REGARDING THE NEED FOR A SLEEP STUDY AND H&H. PT EDUCATED ABOUT SIGNS AND SYMPTOMS OF LOW BLOOD PRESSURE. VSS AT TIME OF DISCHARGE. PT SENT HOME WITH HIS WALKER AND A GAIT BELT FOR SAFETY. EDUCATION ABOUT HEPARIN ADMINISTRATION WAS PROVIDED. PT ASSISTED OUT IN W/C AT 1532.
== END 2023-05-02 15:41 | disposition home or self-care (01) | DRG 480 ==
LOC: ER 18:02 → MEDS 18:03 → SURS 18:03
PROVIDERS: Internal Medicine; Internal Medicine Nephrology; Orthopaedic Surgery; ADMIT Student in an Organized Health Care Education/Training Program
PROC: 3E1M39Z Irrigation of Peritoneal Cavity using Dialysate, Percutaneous Approach (ICD-10-PCS; 2023-04-27)
PROC: 0QH734Z Insertion of Internal Fixation Device into Left Upper Femur, Percutaneous Approach (ICD-10-PCS; principal; 2023-04-28 10:45)
DX: S72.22XA Displaced subtrochanteric fracture of left femur, initial encounter for closed fracture (principal); N18.6 End stage renal disease; I12.0 Hypertensive chronic kidney disease with stage 5 chronic kidney disease or end stage renal disease; E27.1 Primary adrenocortical insufficiency; E87.1 Hypo-osmolality and hyponatremia; E11.22 Type 2 diabetes mellitus with diabetic chronic kidney disease; I25.10 Atherosclerotic heart disease of native coronary artery without angina pectoris; E87.5 Hyperkalemia; E11.65 Type 2 diabetes mellitus with hyperglycemia; E88.09 Other disorders of plasma-protein metabolism, not elsewhere classified; E03.9 Hypothyroidism, unspecified; W17.89XA Other fall from one level to another, initial encounter; D50.9 Iron deficiency anemia, unspecified; D63.1 Anemia in chronic kidney disease; E87.6 Hypokalemia; E86.9 Volume depletion, unspecified; Z53.1 Procedure and treatment not carried out because of patient's decision for reasons of belief and group pressure; Y92.009 Unspecified place in unspecified non-institutional (private) residence as the place of occurrence of the external cause; Z79.890 Hormone replacement therapy; Z99.2 Dependence on renal dialysis; Z95.1 Presence of aortocoronary bypass graft
CPT/HCPCS: 36415; 73552; 80053; 80069; 82728; 82947; 83540; 83550; 83735; 84100; 84443; 85014; 85018; 85025; 85610; 93005; 93010; 94660; 94762; 96365; 96374; 96375; 96376; 97110; 97116; 97162; 97166; 97530; 97535; 99285-25; A9270; C1713; C1751; C1769; G0378; J0171; J0612; J0690; J0735; J0881; J1100; J1170; J1644; J1720; J1750; J1815; J1885; J2371; J2405; J2704; J2795; J3010; J7030; J7050; J7060

== ENCOUNTER → 2023-10-09 | Outpatient (CLI) | payer MEDICARE ==
[~2023-10-09] MED LIST changes: +Cyclobenzaprine5 MG PO; +GABA300 PO; +HUMULIN 70100 UNIT/3 SQ; +HYDCOR20 PO; +HYDMOR2 PO; +INSULIN GL100 UNIT/2 SQ; +Norco 10-325 T1 EACH PO; +[UNRECOGNIZED DRUG - OTHER] SC
[2023-10-09 13:27] LABS: BASOPHILS ABSOLUTE AUTO 0.06 K/mm3 (0.00-0.23); BASOPHILS PERCENT AUTO 1 % (0-2); EOSINOPHILS ABSOLUTE AUTO 0.35 K/mm3 (0.00-0.68); EOSINOPHILS PERCENT AUTO 5 % (0-6); Hematocrit 30.7 % (37.0-53.0); Hemoglobin 10.1 g/dL (13.5-17.5); IMMATURE GRAN ABSOLUTE AUTO 0.01 K/mm3 (0.00-0.10); IMMATURE GRAN PERCENT AUTO 0 % (0-1); LYMPHOCYTES PERCENT AUTO 16 % (21-46); MONOCYTES ABSOLUTE AUTO 0.43 K/mm3 (0.16-1.47); MONOCYTES PERCENT AUTO 6 % (4-13); Mean Corpuscular HGB 32.9 pg (26.0-34.0); Mean Corpuscular HGB Conc 32.9 g/dL (31.5-36.5); Mean Corpuscular Volume 100 fL (80-100); Mean Platelet Volume 8.5 fL (9.1-12.4); NEUTROPHILS ABSOLUTE AUTO 5.51 K/mm3 (1.96-9.15); NEUTROPHILS PERCENT AUTO 73 % (41-73); Platelet Count 207 K/mm3 (150-400); RDW Coefficient Variation 13.1 % (11.7-14.2); RDW Standard Deviation 47.8 fL (35.1-46.3); Red Blood Cell Count 3.07 M/mm3 (4.30-5.90); White Blood Cell Count 7.56 K/mm3 (4.00-11.30)
[2023-10-09 13:38] LABS: Albumin, Blood 3.2 g/dL (3.4-5.0); Albumin/Globulin Ratio 0.8 (0.8-1.8); Bilirubin, Total 0.3 mg/dL (0.1-1.0); Bun/Creatinine Ratio 13.8 (12.0-20.0); Calcium, Blood 6.8 mg/dL (8.5-10.1); Creatinine, Blood 4.29 mg/dL (0.60-1.20); Globulin, Blood 3.8 g/dL (2.2-4.0); Potassium, Blood 4.8 mmol/L (3.5-5.5)
== END | disposition home or self-care (01) ==
LOC: LAB SHORT 13:23 → LAB 13:23
PROVIDERS: Chiropractor
DX: R10.9 Unspecified abdominal pain (principal)
CPT/HCPCS: 80053; 83690; 85025

== ENCOUNTER → 2024-05-15 | Outpatient (CLI) | payer MEDICARE | END | disposition home or self-care (01) | LOC: LAB SHORT 10:54 → LAB 10:54 | DX: N18.6 End stage renal disease (principal); Z99.2 Dependence on renal dialysis | CPT/HCPCS: 82310 ==

== ENCOUNTER → 2024-05-18 | Outpatient (CLI) | payer MEDICARE ==
[2024-05-19 17:16] LABS: Creatinine Urine 66.1 mg/dL (27.00-270.00); Protein, Urine Quantitative 107.2 mg/dL (0.0-11.9)
== END ==
LOC: LAB 06:00 → LAB SHORT 06:00 → LAB FUT 05-16 13:45
PROVIDERS: Internal Medicine Nephrology
DX: N18.6 End stage renal disease (principal); D63.1 Anemia in chronic kidney disease; R76.9 Abnormal immunological finding in serum, unspecified; R94.5 Abnormal results of liver function studies; R94.6 Abnormal results of thyroid function studies; D50.9 Iron deficiency anemia, unspecified; D51.8 Other vitamin B12 deficiency anemias
CPT/HCPCS: 81050; 82043; 82570; 84156

== ENCOUNTER → 2024-05-26 | Outpatient (CLI) | payer MEDICARE ==
[2024-05-26 19:00] LABS: Calcium, Urine <5.0 mg/dL (< 17.5); Calcium, Urine Calculation Unable to Calculate mg/24hrs (42.0-353.0)
== END | disposition home or self-care (01) ==
LOC: LAB SHORT 10:00 → LAB 10:00
PROVIDERS: Family Medicine
DX: E83.52 Hypercalcemia (principal)
CPT/HCPCS: 81050; 82340

== ENCOUNTER → 2024-08-05 | Outpatient (CLI) | payer MEDICARE ==
[2024-08-05 16:51] LABS: Automated BF WBC Count 0.002 K/mm3 (0-999)
[2024-08-05 16:57] LABS: Body Fluid WBC Count 2 /mm3 (0-999)
[2024-08-05 17:25] LABS: Appearance, Body Fluid Clear (Clear); Color, Body Fluid No color (None-Yellow); RBC Count, Body Fluid 2 /mm3 (0-0)
== END ==
LOC: LAB SHORT 16:38 → LAB 16:38
PROVIDERS: Hospitalist
DX: N18.6 End stage renal disease (principal)
CPT/HCPCS: 87070; 89051

== ENCOUNTER 2024-11-12 06:29 | Day surgery (SDC) | payer OTHER ==
[2024-11-12] VITALS (7 sets, daily range): BP systolic 111–144; BP diastolic 52–81
[~2024-11-12] VITALS: Ht 177.8 cm; Wt 93.0 kg
[~2024-11-12 06:29] MED LIST changes: -BUME2; +BUME2 PO; +Crestor40 MG PO; -METO25ER; +METO25ER PO; +TAMS.4ER PO
[2024-11-12] MEDS ORDERED: Verapamil HCL 2.5 MG/ML 2ML Injection ONE (07:30)
[2024-11-12] MEDS ORDERED: Heparin Sodium 1000 Units/ML 10ML MDV ONE (07:30)
[2024-11-12] MEDS ORDERED: NS 250 ML IV ONE (07:30)
[2024-11-12] MEDS ORDERED: NS 1,000 ML IV ONE ×2 (07:30→08:09)
[2024-11-12] MEDS ORDERED: Nitroglycerin 2 MG/20 ML BTL ONE (07:31)
[2024-11-12] MEDS ORDERED: Midazolam HCl 1MG / ML 2ML Vial ONE (08:09)
[2024-11-12] MEDS ORDERED: FentaNYL Citrate 50 MCG/ML 2 ML Injection ONE (08:09)
--- NOTE | 2024-11-12 09:45 | NUR ---
PATIENT ARRIVED BACK TO RECOVERY ROOM WITH HOB FLAT. RIGHT GROIN SITE C/D/I SOFT/NONTENDER, NO EVIDENCE OF BLEEDING. VSS ON RA. PATIENT DENYING ANY PAIN. LE PERFUSION PRESENT.
--- NOTE | 2024-11-12 10:01 | NUR ---
HOB FLAT. RIGHT GROIN SITE C/D/I SOFT/NONTENDER, NO EVIDENCE OF BLEEDING, GOOOD PERFUSION PRESENT. VSS ON RA. PATIENT TOLERATING PO INTAKE WELL.
--- NOTE | 2024-11-12 12:00 | NUR ---
HOB ELEVATED 30 DEGREES. RIGHT GROIN SITE C/D/I SOFT/NONTENDER, NO EVIDENCE OF BLEEDING. DISTAL PERFUSION PRESENT. VSS ON RA. PATIENT TOLERATING PO INTAKE WELL.
--- NOTE | 2024-11-12 12:40 | NUR ---
PT AMB TO BATHROOM /C SBA. TOLERATED WELL. NEG BLEEDING OR SWELLING.
--- NOTE | 2024-11-12 12:55 | NUR ---
PT VERBALIZED UNDERSTANDING OF WRITTEN AND VERBAL D/C INST. IV REMOVED. PT TAKEN OUT OF THE DEPARTMENT VIA W/C.
== END 2024-11-12 12:58 | disposition home or self-care (01) ==
LOC: MHTC 06:29
DX: Z01.810 Encounter for preprocedural cardiovascular examination (principal); I25.10 Atherosclerotic heart disease of native coronary artery without angina pectoris; I13.2 Hypertensive heart and chronic kidney disease with heart failure and with stage 5 chronic kidney disease, or end stage renal disease; E11.22 Type 2 diabetes mellitus with diabetic chronic kidney disease; N18.6 End stage renal disease; I50.9 Heart failure, unspecified; D63.1 Anemia in chronic kidney disease; E78.5 Hyperlipidemia, unspecified; I08.0 Rheumatic disorders of both mitral and aortic valves; E03.9 Hypothyroidism, unspecified; E27.1 Primary adrenocortical insufficiency; Z79.4 Long term (current) use of insulin; Z79.52 Long term (current) use of systemic steroids; Z79.890 Hormone replacement therapy; Z79.899 Other long term (current) drug therapy; Z88.6 Allergy status to analgesic agent; Z88.8 Allergy status to other drugs, medicaments and biological substances; Z95.1 Presence of aortocoronary bypass graft; Z99.2 Dependence on renal dialysis
CPT/HCPCS: 76937; 93306; 93455; 99152; 99153; C1769; C1894; J1644; J2250; J3010; J7030; J7050; Q9967

== ENCOUNTER 2024-12-23 06:43 | Day surgery (SDC) | payer MEDICARE, OTHER ==
[~2024-12-23] VITALS: Ht 177.8 cm; Wt 87.0 kg
[2024-12-23] VITALS (7 sets, daily range): BP systolic 121–151; BP diastolic 29–101
[2024-12-23] MEDS ORDERED: Renvela800 MG PO (07:21)
[2024-12-23] MEDS ORDERED: B-12 COMPL1000 MCG/2 IM (07:22)
[2024-12-23] MEDS ORDERED: NS 1,000 ML IV ONE (07:28)
[2024-12-23] MEDS ORDERED: Heparin Sodium 1000 Units/ML 10ML MDV ONE (07:28)
[2024-12-23 07:38] LABS: Hematocrit 38.3 % (37.0-53.0); Hemoglobin 11.6 g/dL (13.5-17.5); Mean Corpuscular HGB Conc 30.3 g/dL (31.5-36.5); Mean Corpuscular Volume 101 fL (80-100); NRBC ABSOLUTE 0.05 K/mm3 (0.00-0.02); NRBC Auto 0.6 /100 WBC (0.0-0.2); Platelet Count 189 K/mm3 (150-400); RDW Coefficient Variation 17.2 % (11.7-14.2); RDW Standard Deviation 57.6 fL (35.1-46.3)
[2024-12-23] MEDS ORDERED: INSPUMP (07:45)
[2024-12-23 07:52] LABS: Prothrombin Time Results 12.1 Sec (9.7-11.5)
[2024-12-23 07:55] LABS: Anion Gap 9.0 mmol/L (3-11); Blood Urea Nitrogen 45.0 mg/dL (8-24); CO2, Blood 32.0 mmol/L (21-32); Calcium, Blood 9.5 mg/dL (8.5-10.1); Chloride, Blood 99.0 mmol/L (98-108); Creatinine, Blood 6.64 mg/dL (0.60-1.20); Glucose, Blood 85.0 mg/dL (70-99); Potassium, Blood 4.4 mmol/L (3.5-5.5); Sodium, Blood 136.0 mmol/L (136-145)
[2024-12-23] MEDS ORDERED: FentaNYL Citrate 50 MCG/ML 2 ML Injection ONE (07:56)
[2024-12-23] MEDS ORDERED: Midazolam HCl 1MG / ML 2ML Vial ONE (07:56)
[2024-12-23] MEDS ORDERED: NS 500 ML IV ONE (07:56)
--- NOTE | 2024-12-23 09:20 | NUR ---
ASSUMED CARE OF PT POST PROCEDURE. PT ALERT AND ORIENTED, PLEASENT AND COOPERATIVE; DENIES PAIN POST PROCEDURE. MONITOR SR WITH IVCD 70'S, B/P 151/77, SPO2 100 % RA. L ARM FISTULA SITE NO SWELLING/HEMATOMA, CLOTH DOT DRSG INTACT; L ARM FISTULA POSITIVE THRILL.
--- NOTE | 2024-12-23 10:35 | NUR ---
PT DRESSED SELF WITHOUT ISSUE, SITE UNCHANGED; IV REMOVED-CANNULA INTACT.
--- NOTE | 2024-12-23 10:41 | NUR ---
PT RECEIVED DISCHARGE INSTRUCTIONS, MED LIST AND AFTER CARE INSTRUCTIONS; VERBALIZED GOOD UNDERSTANDING. PT LEFT FACILITY VIA W/C, CONDITION STABLE.
[2025-01-08] MEDS ORDERED: CALC.25 PO (08:08)
[2025-01-08] MEDS ORDERED: DOXY100 PO (08:09)
[2025-01-08] MEDS ORDERED: VELPHORO PO (08:13)
== END 2024-12-23 10:41 | disposition home or self-care (01) ==
LOC: MHTC 06:43
PROVIDERS: Student in an Organized Health Care Education/Training Program
DX: T82.858A Stenosis of other vascular prosthetic devices, implants and grafts, initial encounter (principal); E11.22 Type 2 diabetes mellitus with diabetic chronic kidney disease; N18.6 End stage renal disease; I50.9 Heart failure, unspecified; I25.10 Atherosclerotic heart disease of native coronary artery without angina pectoris; E27.1 Primary adrenocortical insufficiency; K59.00 Constipation, unspecified; K42.9 Umbilical hernia without obstruction or gangrene; I44.0 Atrioventricular block, first degree; Z79.4 Long term (current) use of insulin; Z79.890 Hormone replacement therapy; Z79.899 Other long term (current) drug therapy; Z88.6 Allergy status to analgesic agent; Z88.8 Allergy status to other drugs, medicaments and biological substances; Z95.1 Presence of aortocoronary bypass graft; Z99.3 Dependence on wheelchair; Y83.2 Surgical operation with anastomosis, bypass or graft as the cause of abnormal reaction of the patient, or of later complication, without mention of misadventure at the time of the procedure
CPT/HCPCS: 76937; 80048; 85027; 85610; 93005; 93010; 99152; 99153; C1725; C1769; C1894; J1644; J2250; J3010; J7030; J7040; Q9967

== ENCOUNTER 2025-01-13 05:58 | Day surgery (SDC) | payer MEDICARE, OTHER ==
[2025-01-13] VITALS (10 sets, daily range): BP systolic 98–151; BP diastolic 62–91
[~2025-01-13] VITALS: Ht 174.5 cm; Wt 88.7 kg
[~2025-01-13 05:58] MED LIST changes: +B-12 COMPL1000 MCG/2 IM; +CALC.25 PO; +DOXY100 PO; +INSPUMP; +Renvela800 MG PO; +VELPHORO PO
[2025-01-13] MEDS ORDERED: CeFAZolin Sodium 2,000 MG in NS 100 ML IV SCH (06:25)
[2025-01-13] MEDS ORDERED: Ondansetron HCl 2 MG / ML 2ML Vial IV ONE (07:00)
[2025-01-13] MEDS ORDERED: FentaNYL Citrate 50 MCG/ML 2 ML Injection IV ONE (07:00)
[2025-01-13] MEDS ORDERED: Bupivacaine 0.5% HCl 5 MG/ML 30MLVIAL ONE (07:16)
[2025-01-13 07:17] LABS: Anion Gap 12.0 mmol/L (3-11); Blood Urea Nitrogen 56.0 mg/dL (8-24); CO2, Blood 30.0 mmol/L (21-32); Calcium, Blood 8.7 mg/dL (8.5-10.1); Chloride, Blood 101.0 mmol/L (98-108); Creatinine, Blood 7.43 mg/dL (0.60-1.20); Glucose, Blood 158.0 mg/dL (70-99); Potassium, Blood 4.8 mmol/L (3.5-5.5); Sodium, Blood 138.0 mmol/L (136-145)
[2025-01-13] MEDS ORDERED: Etomidate 2MG / ML 10ML Vial IV ONE (07:29)
--- NOTE | 2025-01-13 07:32 | NUR ---
History, Chart, Medications and Allergies reviewed before start of procedure. Patient up to Ambulate independently. Gait steady. Pre-Op teaching done. Pt verbalizes understanding. Patient confirms NPO status and agrees with scheduled surgery. Patient reports completing Chlorhexadine shower X1 prior to admission to hospital. Surgical site prepped with 2% Chlorhexidine cloth wipe. Lungs clear T/O to Auscultation. Patient States Post-Procedure ride home has been arranged.
[2025-01-13] MEDS ORDERED: ePHEDrine Sulfate 50 MG/ML 1ML Injection IV ONE (07:33)
[2025-01-13] MEDS ORDERED: Ondansetron HCl 2 MG / ML 2ML Vial IV PRN (08:10)
[2025-01-13] MEDS ORDERED: ePHEDrine Sulfate 50 MG/ML 1ML Injection IV PRN (08:15)
[2025-01-13] MEDS ORDERED: HYDROmorphone HCl/Pf 1MG SYR IV PRN (08:15)
[2025-01-13] MEDS ORDERED: FentaNYL Citrate 50 MCG/ML 2 ML Injection IV PRN ×2 (08:15)
[2025-01-13] MEDS ORDERED: Metoclopramide HCl 5MG / ML 2ML Vial IV PRN (08:15)
[2025-01-13] MEDS ORDERED: HydrALAZINE HCl 20 MG / ML 1ML Vial IV PRN (08:15)
[2025-01-13] MEDS ORDERED: HYDROcodone 5-APAP 325 TAB PO PRN (08:30)
--- NOTE | 2025-01-13 10:32 | NUR ---
Patient up to Ambulate independently. Gait steady. Discharge instructions reviewed with patient. Patient verbalizes understanding. Copy given to patient to take home. Dressing to procedure site clean, dry, intact with no visible drainage, swelling, erythema or bruising noted. Patient States Post-Procedure ride home has been arranged. Discharged via wheelchair to private car for ride home.
== END 2025-01-13 09:38 | disposition home or self-care (01) ==
LOC: ORSCMMR 05:58 → ORD 07:30 → ORSCMMR 07:30
PROVIDERS: Surgery
PROC: 0WPG03Z Removal of Infusion Device from Peritoneal Cavity, Open Approach (ICD-10-PCS; principal; 2025-01-13 07:30)
DX: Z99.2 Dependence on renal dialysis (principal); I12.0 Hypertensive chronic kidney disease with stage 5 chronic kidney disease or end stage renal disease; E11.22 Type 2 diabetes mellitus with diabetic chronic kidney disease; N18.6 End stage renal disease; Z79.4 Long term (current) use of insulin; Z96.41 Presence of insulin pump (external) (internal); G47.33 Obstructive sleep apnea (adult) (pediatric); I25.10 Atherosclerotic heart disease of native coronary artery without angina pectoris; E78.5 Hyperlipidemia, unspecified; I50.9 Heart failure, unspecified; E03.9 Hypothyroidism, unspecified; E27.1 Primary adrenocortical insufficiency; Z79.899 Other long term (current) drug therapy
CPT/HCPCS: 80048; 82947; A9270; C1729; J0690; J1720; J2405; J2704; J3010; J7120

== ENCOUNTER 2025-01-30 11:50 | Emergency (ER) | payer OTHER, MEDICARE ==
[~2025-01-30] VITALS: Ht 175.3 cm; Wt 86.6 kg
[2025-01-30] MEDS ORDERED: FentaNYL Citrate 50 MCG/ML 2 ML Injection IV ONE (12:25)
[2025-01-30] MEDS ORDERED: Ondansetron HCl 2 MG / ML 2ML Vial IV ONE (12:25)
[2025-01-30 14:24] LABS: BASOPHILS ABSOLUTE AUTO 0.06 K/mm3 (0.00-0.23); BASOPHILS PERCENT AUTO 1 % (0-2); EOSINOPHILS ABSOLUTE AUTO 0.32 K/mm3 (0.00-0.68); EOSINOPHILS PERCENT AUTO 4 % (0-6); Hematocrit 46.7 % (37.0-53.0); Hemoglobin 14.5 g/dL (13.5-17.5); IMMATURE GRAN ABSOLUTE AUTO 0.01 K/mm3 (0.00-0.10); IMMATURE GRAN PERCENT AUTO 0 % (0-1); LYMPHOCYTES ABSOLUTE AUTO 1.10 K/mm3 (0.84-5.20); LYMPHOCYTES PERCENT AUTO 12 % (21-46); MONOCYTES ABSOLUTE AUTO 0.62 K/mm3 (0.16-1.47); MONOCYTES PERCENT AUTO 7 % (4-13); Mean Corpuscular HGB Conc 31.0 g/dL (31.5-36.5); Mean Corpuscular Volume 95 fL (80-100); NEUTROPHILS ABSOLUTE AUTO 6.79 K/mm3 (1.96-9.15); NEUTROPHILS PERCENT AUTO 76 % (41-73); NRBC ABSOLUTE 0.00 K/mm3 (0.00-0.02); NRBC Auto 0.0 /100 WBC (0.0-0.2); Platelet Count 154 K/mm3 (150-400); RDW Coefficient Variation 13.8 % (11.7-14.2); RDW Standard Deviation 48.8 fL (35.1-46.3)
[2025-01-30 14:49] LABS: Alanine Aminotransfer (ALT/SGP 17.0 U/L (12-78); Albumin, Blood 4.0 g/dL (3.4-5.0); Albumin/Globulin Ratio 1.1 (0.8-1.8); Anion Gap 11.0 mmol/L (3-11); Aspartate Aminotrans (AST/SGOT 26.0 U/L (12-37); Bilirubin, Total 0.8 mg/dL (0.1-1.0); Blood Urea Nitrogen 46.0 mg/dL (8-24); CO2, Blood 33.0 mmol/L (21-32); Calcium, Blood 9.5 mg/dL (8.5-10.1); Chloride, Blood 95.0 mmol/L (98-108); Creatinine, Blood 6.24 mg/dL (0.60-1.20); Globulin, Blood 3.6 g/dL (2.2-4.0); Glucose, Blood 133.0 mg/dL (70-99); Potassium, Blood 4.3 mmol/L (3.5-5.5); Sodium, Blood 135.0 mmol/L (136-145); Total Protein, Blood 7.6 g/dL (6.4-8.2)
[2025-01-30] MEDS ORDERED: OXAYDO5 M1 PO (15:17)
[2025-01-30 15:30] VITALS: BP 138/67
== END 2025-01-30 15:59 | disposition home or self-care (01) ==
LOC: ER 11:50
PROVIDERS: Student in an Organized Health Care Education/Training Program
DX: M25.551 Pain in right hip (principal); I12.0 Hypertensive chronic kidney disease with stage 5 chronic kidney disease or end stage renal disease; N18.6 End stage renal disease; E11.22 Type 2 diabetes mellitus with diabetic chronic kidney disease; Z99.2 Dependence on renal dialysis; W18.30XA Fall on same level, unspecified, initial encounter; Z79.4 Long term (current) use of insulin; Z79.899 Other long term (current) drug therapy; Z88.8 Allergy status to other drugs, medicaments and biological substances
CPT/HCPCS: 73502; 73552; 80053; 85025; 96374; 96375; 99283-25; A9270; J2405; J3010

== ENCOUNTER 2025-02-03 14:19 | Inpatient (IN) | payer MEDICARE, OTHER ==
[~2025-02-03] VITALS: Ht 175.3 cm; Wt 90.9 kg
[~2025-02-03 14:19] MED LIST changes: +OXAYDO5 M1 PO
[2025-02-03] MEDS ORDERED: OXAYDO5 M1 PO (17:47)
[2025-02-03] MEDS ORDERED: HYDROcodone 5-APAP 325 TAB PO ONE (20:35)
[2025-02-03 21:51] LABS: BASOPHILS ABSOLUTE AUTO 0.04 K/mm3 (0.00-0.23); BASOPHILS PERCENT AUTO 1 % (0-2); EOSINOPHILS ABSOLUTE AUTO 0.05 K/mm3 (0.00-0.68); EOSINOPHILS PERCENT AUTO 1 % (0-6); Hematocrit 41.1 % (37.0-53.0); Hemoglobin 13.0 g/dL (13.5-17.5); IMMATURE GRAN ABSOLUTE AUTO 0.01 K/mm3 (0.00-0.10); IMMATURE GRAN PERCENT AUTO 0 % (0-1); LYMPHOCYTES ABSOLUTE AUTO 0.93 K/mm3 (0.84-5.20); LYMPHOCYTES PERCENT AUTO 18 % (21-46); MONOCYTES ABSOLUTE AUTO 0.36 K/mm3 (0.16-1.47); MONOCYTES PERCENT AUTO 7 % (4-13); Mean Corpuscular HGB Conc 31.6 g/dL (31.5-36.5); Mean Corpuscular Volume 92 fL (80-100); NEUTROPHILS ABSOLUTE AUTO 3.91 K/mm3 (1.96-9.15); NEUTROPHILS PERCENT AUTO 74 % (41-73); NRBC ABSOLUTE 0.00 K/mm3 (0.00-0.02); NRBC Auto 0.0 /100 WBC (0.0-0.2); Platelet Count 179 K/mm3 (150-400); RDW Coefficient Variation 14.0 % (11.7-14.2); RDW Standard Deviation 47.5 fL (35.1-46.3)
[2025-02-03 22:21] LABS: Alanine Aminotransfer (ALT/SGP 17.0 U/L (12-78); Albumin, Blood 3.6 g/dL (3.4-5.0); Albumin/Globulin Ratio 1.1 (0.8-1.8); Anion Gap 18.0 mmol/L (3-11); Aspartate Aminotrans (AST/SGOT 21.0 U/L (12-37); Bilirubin, Total 0.6 mg/dL (0.1-1.0); Blood Urea Nitrogen 113.0 mg/dL (8-24); CO2, Blood 25.0 mmol/L (21-32); Calcium, Blood 8.4 mg/dL (8.5-10.1); Chloride, Blood 93.0 mmol/L (98-108); Creatinine, Blood 10.5 mg/dL (0.60-1.20); Globulin, Blood 3.2 g/dL (2.2-4.0); Glucose, Blood 167.0 mg/dL (70-99); Potassium, Blood 6.6 mmol/L (3.5-5.5); Sodium, Blood 129.0 mmol/L (136-145); Total Protein, Blood 6.8 g/dL (6.4-8.2)
[2025-02-03] MEDS ORDERED: Insulin Regular 100 Unit/ML 1ML Dose IV ONE (23:00)
[2025-02-03] MEDS ORDERED: CALCIUM GLUC IN NACL, ISO-OSM 50 ML IV ONE (23:00)
[2025-02-03] MEDS ORDERED: NS 1,000 ML IV SCH (23:30)
[2025-02-03] MEDS ORDERED: Ondansetron HCl 2 MG / ML 2ML Vial IV PRN (23:30)
[2025-02-03] MEDS ORDERED: Insulin Human Lispro 100 Units/ML 3ML Syringe SC ONE (23:40)
[2025-02-04] VITALS (15 sets, daily range): BP systolic 110–144; BP diastolic 62–78
[2025-02-04 02:48] LABS: BASOPHILS ABSOLUTE AUTO 0.06 K/mm3 (0.00-0.23); BASOPHILS PERCENT AUTO 1 % (0-2); EOSINOPHILS ABSOLUTE AUTO 0.15 K/mm3 (0.00-0.68); EOSINOPHILS PERCENT AUTO 3 % (0-6); Hematocrit 42.1 % (37.0-53.0); Hemoglobin 13.2 g/dL (13.5-17.5); IMMATURE GRAN ABSOLUTE AUTO 0.05 K/mm3 (0.00-0.10); IMMATURE GRAN PERCENT AUTO 1 % (0-1); LYMPHOCYTES ABSOLUTE AUTO 1.33 K/mm3 (0.84-5.20); LYMPHOCYTES PERCENT AUTO 24 % (21-46); MONOCYTES ABSOLUTE AUTO 0.41 K/mm3 (0.16-1.47); MONOCYTES PERCENT AUTO 7 % (4-13); Mean Corpuscular HGB Conc 31.4 g/dL (31.5-36.5); Mean Corpuscular Volume 93 fL (80-100); NEUTROPHILS ABSOLUTE AUTO 3.54 K/mm3 (1.96-9.15); NEUTROPHILS PERCENT AUTO 64 % (41-73); NRBC ABSOLUTE 0.00 K/mm3 (0.00-0.02); NRBC Auto 0.0 /100 WBC (0.0-0.2); Platelet Count 156 K/mm3 (150-400); RDW Coefficient Variation 14.1 % (11.7-14.2); RDW Standard Deviation 48.5 fL (35.1-46.3)
[2025-02-04 03:06] LABS: Magnesium, Blood 3.2 mg/dL (1.6-2.4)
[2025-02-04 03:10] LABS: Alanine Aminotransfer (ALT/SGP 16.0 U/L (12-78); Albumin, Blood 3.6 g/dL (3.4-5.0); Albumin/Globulin Ratio 1.1 (0.8-1.8); Anion Gap 18.0 mmol/L (3-11); Aspartate Aminotrans (AST/SGOT 21.0 U/L (12-37); Bilirubin, Total 0.6 mg/dL (0.1-1.0); Blood Urea Nitrogen 112.0 mg/dL (8-24); CO2, Blood 23.0 mmol/L (21-32); Calcium, Blood 9.0 mg/dL (8.5-10.1); Chloride, Blood 94.0 mmol/L (98-108); Creatinine, Blood 10.6 mg/dL (0.60-1.20); Globulin, Blood 3.4 g/dL (2.2-4.0); Glucose, Blood 119.0 mg/dL (70-99); Potassium, Blood 6.1 mmol/L (3.5-5.5); Sodium, Blood 129.0 mmol/L (136-145); Total Protein, Blood 7.0 g/dL (6.4-8.2)
[2025-02-04 03:26] LABS: Prothrombin Time Results 11.9 Sec (9.7-11.5)
[2025-02-04] MEDS ORDERED: Insulin Pump Cartridge MISC SC SCH ×2 (05:00→07:30)
[2025-02-04] MEDS ORDERED: Polyethylene Glycol 3350 17 gm PO PRN (06:00)
[2025-02-04] MEDS ORDERED: Polyethylene Glycol 3350 17 gm PO ONE (06:00)
--- NOTE | 2025-02-04 07:22 | NUR ---
SHIFT SUMMARY: PT ARRIVES TO PCU 19 FROM THE ER VIA GURNEY AROUND 0130. TRANSFERRED PT TO HOSPITAL BED X2 ASSIST AND FWW. PT ORIENTED TO ROOM AND CALL LIGHT. MELVA IS A&OX4, PLEASANT AND COOPERATIVE WITH CARE. VSS ON RA. SR @64 WITH 1ST DEGREE HB AND BBB. C/O 8/10 PAIN WITH ANY MOVEMENT OF HIS LLE, IF LAYING IN BED HE DENIES PAIN. ON A RENAL DIET. PT USING URINAL INDEPENDENTLY IN BED. HE VOIDED A SMALL AMOUNT OF CLEAR YELLOW URINE. PT STATES HE HAS NOT HAD A BOWEL MOVEMENT IN 5 DAYS D/T OPIOD USE AT HOME. NO BM THIS SHIFT, BOWEL CARE ADMINISTERED. BED IN LOWEST POSITION, CALL LIGHT WITHIN REACH. CALLS APPROPRIATELY AND IS ABLE TO ADVOCATE NEEDS EFFECTIVELY. CONSULT CALLED THIS MORNING TO DR DÍAZ.
[2025-02-04] MEDS ORDERED: Heparin Sodium,Porcine 5,000 UNIT/0.5 ML SDV SC SCH (09:00)
[2025-02-04] MEDS ORDERED: ALTEPLASE 1 MG/ML IV SCH (10:15)
[2025-02-04] MEDS ORDERED: Alteplase Recombinant 2 MG / Vial IV ONE (10:20)
== END 2025-02-04 14:18 | disposition home or self-care (01) | DRG 640 ==
LOC: ER 14:19 → ERHOLD 14:20 → PCU 14:20
PROVIDERS: Emergency Medicine; Student in an Organized Health Care Education/Training Program; ADMIT Internal Medicine
PROC: 5A1D70Z Performance of Urinary Filtration, Intermittent, Less than 6 Hours Per Day (ICD-10-PCS; principal; 2025-02-03)
DX: E87.70 Fluid overload, unspecified (principal); N18.6 End stage renal disease; I45.2 Bifascicular block; I12.0 Hypertensive chronic kidney disease with stage 5 chronic kidney disease or end stage renal disease; D63.1 Anemia in chronic kidney disease; I44.0 Atrioventricular block, first degree; E87.5 Hyperkalemia; I25.10 Atherosclerotic heart disease of native coronary artery without angina pectoris; E03.9 Hypothyroidism, unspecified; E11.22 Type 2 diabetes mellitus with diabetic chronic kidney disease; Z99.2 Dependence on renal dialysis; Z91.158 Patient's noncompliance with renal dialysis for other reason; Z88.6 Allergy status to analgesic agent; Z88.8 Allergy status to other drugs, medicaments and biological substances; Z79.891 Long term (current) use of opiate analgesic; Z79.899 Other long term (current) drug therapy; Z79.4 Long term (current) use of insulin; Z79.890 Hormone replacement therapy
CPT/HCPCS: 73502; 73552; 80053; 82947; 83036; 83735; 83880; 85025; 85610; 93005; 93010; 93926; 93971; 94762; 99285-25; A9270; G0378; J0612; J1815; J2997; J7030

== ENCOUNTER 2025-02-13 16:06 | Emergency (ER) | payer MEDICARE, OTHER ==
[~2025-02-13] VITALS: Ht 175.3 cm; Wt 87.1 kg
[2025-02-13 17:04] VITALS: BP 132/63
[2025-02-13 18:30] LABS: BASOPHILS ABSOLUTE AUTO 0.03 K/mm3 (0.00-0.23); BASOPHILS PERCENT AUTO 0 % (0-2); EOSINOPHILS ABSOLUTE AUTO 0.21 K/mm3 (0.00-0.68); EOSINOPHILS PERCENT AUTO 3 % (0-6); Hematocrit 38.1 % (37.0-53.0); Hemoglobin 12.0 g/dL (13.5-17.5); IMMATURE GRAN ABSOLUTE AUTO 0.01 K/mm3 (0.00-0.10); IMMATURE GRAN PERCENT AUTO 0 % (0-1); LYMPHOCYTES ABSOLUTE AUTO 0.73 K/mm3 (0.84-5.20); LYMPHOCYTES PERCENT AUTO 11 % (21-46); MONOCYTES ABSOLUTE AUTO 0.29 K/mm3 (0.16-1.47); MONOCYTES PERCENT AUTO 4 % (4-13); Mean Corpuscular HGB Conc 31.5 g/dL (31.5-36.5); Mean Corpuscular Volume 93 fL (80-100); NEUTROPHILS ABSOLUTE AUTO 5.57 K/mm3 (1.96-9.15); NEUTROPHILS PERCENT AUTO 82 % (41-73); NRBC ABSOLUTE 0.00 K/mm3 (0.00-0.02); NRBC Auto 0.0 /100 WBC (0.0-0.2); Platelet Count 175 K/mm3 (150-400); RDW Coefficient Variation 14.0 % (11.7-14.2); RDW Standard Deviation 48.1 fL (35.1-46.3)
[2025-02-13 18:47] LABS: Alanine Aminotransfer (ALT/SGP 19.0 U/L (12-78); Albumin, Blood 3.4 g/dL (3.4-5.0); Albumin/Globulin Ratio 0.9 (0.8-1.8); Anion Gap 11.0 mmol/L (3-11); Aspartate Aminotrans (AST/SGOT 29.0 U/L (12-37); Bilirubin, Total 0.6 mg/dL (0.1-1.0); Blood Urea Nitrogen 45.0 mg/dL (8-24); CO2, Blood 33.0 mmol/L (21-32); Calcium, Blood 9.1 mg/dL (8.5-10.1); Chloride, Blood 93.0 mmol/L (98-108); Creatinine, Blood 5.17 mg/dL (0.60-1.20); Globulin, Blood 3.6 g/dL (2.2-4.0); Glucose, Blood 236.0 mg/dL (70-99); Potassium, Blood 5.0 mmol/L (3.5-5.5); Sodium, Blood 132.0 mmol/L (136-145); Total Protein, Blood 7.0 g/dL (6.4-8.2)
== END 2025-02-13 18:41 | disposition home or self-care (01) ==
LOC: ER 16:06
PROVIDERS: Emergency Medicine
DX: I12.0 Hypertensive chronic kidney disease with stage 5 chronic kidney disease or end stage renal disease (principal); E11.22 Type 2 diabetes mellitus with diabetic chronic kidney disease; N18.6 End stage renal disease; E03.9 Hypothyroidism, unspecified; Z79.4 Long term (current) use of insulin; Z91.048 Other nonmedicinal substance allergy status; Z88.6 Allergy status to analgesic agent; Z88.8 Allergy status to other drugs, medicaments and biological substances; I10 Essential (primary) hypertension; E11.9 Type 2 diabetes mellitus without complications; I50.22 Chronic systolic (congestive) heart failure
CPT/HCPCS: 36415; 71046; 80053; 83880; 84484; 85025; 93005; 93010; 99283-25

== ENCOUNTER 2025-05-30 12:12 | Emergency (ER) | payer MEDICARE, OTHER ==
[~2025-05-30] VITALS: Ht 175.3 cm; Wt 78.9 kg
[2025-05-30 17:05] LABS: Source, Urine Voided
[2025-05-30 17:12] LABS: Bilirubin, Urine Neg (Neg); Color, Urine Yellow (P-Yellow); Glucose Qualitative, Urine 3+ (Neg); Ketones, Urine Neg (Neg); Leukocyte Esterase, Urine Neg (Neg); Protein, Urine 4+ (Neg); Specific Gravity, Urine 1.010 (1.003-1.022); Urobilinogen, Urine NORM (Normal)
[2025-05-30 17:19] LABS: White Blood Cells, Urine 0-2 /hpf (0-5)
[2025-05-30 17:33] LABS: BASOPHILS ABSOLUTE AUTO 0.05 K/mm3 (0.00-0.23); BASOPHILS PERCENT AUTO 1 % (0-2); EOSINOPHILS ABSOLUTE AUTO 0.25 K/mm3 (0.00-0.68); EOSINOPHILS PERCENT AUTO 3 % (0-6); Hematocrit 36.0 % (37.0-53.0); Hemoglobin 11.2 g/dL (13.5-17.5); IMMATURE GRAN ABSOLUTE AUTO 0.02 K/mm3 (0.00-0.10); IMMATURE GRAN PERCENT AUTO 0 % (0-1); LYMPHOCYTES ABSOLUTE AUTO 1.42 K/mm3 (0.84-5.20); LYMPHOCYTES PERCENT AUTO 16 % (21-46); MONOCYTES ABSOLUTE AUTO 0.53 K/mm3 (0.16-1.47); MONOCYTES PERCENT AUTO 6 % (4-13); Mean Corpuscular HGB Conc 31.1 g/dL (31.5-36.5); Mean Corpuscular Volume 97 fL (80-100); NEUTROPHILS ABSOLUTE AUTO 6.37 K/mm3 (1.96-9.15); NEUTROPHILS PERCENT AUTO 74 % (41-73); NRBC ABSOLUTE 0.00 K/mm3 (0.00-0.02); NRBC Auto 0.0 /100 WBC (0.0-0.2); Platelet Count 231 K/mm3 (150-400); RDW Coefficient Variation 14.2 % (11.7-14.2); RDW Standard Deviation 50.8 fL (35.1-46.3)
[2025-05-30 17:59] LABS: Alanine Aminotransfer (ALT/SGP 18.0 U/L (12-78); Albumin, Blood 3.7 g/dL (3.4-5.0); Albumin/Globulin Ratio 1.1 (0.8-1.8); Anion Gap 9.0 mmol/L (3-11); Aspartate Aminotrans (AST/SGOT 20.0 U/L (12-37); Bilirubin, Total 0.8 mg/dL (0.1-1.0); Blood Urea Nitrogen 35.0 mg/dL (8-24); CO2, Blood 32.0 mmol/L (21-32); Calcium, Blood 9.5 mg/dL (8.5-10.1); Chloride, Blood 95.0 mmol/L (98-108); Creatinine, Blood 6.04 mg/dL (0.60-1.20); Globulin, Blood 3.3 g/dL (2.2-4.0); Glucose, Blood 173.0 mg/dL (70-99); Potassium, Blood 4.2 mmol/L (3.5-5.5); Sodium, Blood 132.0 mmol/L (136-145); Total Protein, Blood 7.0 g/dL (6.4-8.2)
[2025-05-30 19:00] VITALS: BP 163/88
[2025-05-30] MEDS ORDERED: ONDA4ODT MM (19:43)
[2025-05-30] MEDS ORDERED: MIRALAX17 GM PO (19:43)
== END 2025-05-30 20:18 | disposition home or self-care (01) ==
LOC: ER 12:12
PROVIDERS: Emergency Medicine
DX: K59.00 Constipation, unspecified (principal); R11.0 Nausea; I12.0 Hypertensive chronic kidney disease with stage 5 chronic kidney disease or end stage renal disease; E11.22 Type 2 diabetes mellitus with diabetic chronic kidney disease; N18.6 End stage renal disease; E03.9 Hypothyroidism, unspecified; Z79.899 Other long term (current) drug therapy; Z79.4 Long term (current) use of insulin; Z91.048 Other nonmedicinal substance allergy status; Z88.6 Allergy status to analgesic agent
CPT/HCPCS: 74176; 80053; 81001; 82140; 83690; 85025; 99285-25